=== PATIENT | female | born 1990 | race African-American/Black ===

== ENCOUNTER 2016-05-20 12:46 | Emergency (ER) | payer MEDICAID, OTHER ==
[~2016-05-20] VITALS: Ht 157.5 cm; Wt 54.4 kg
[~2016-05-20 12:46] MED LIST: AMOXICILLIN500 MG ORAL; AZITHROMYCIN250 MG ORAL; GUAIFENESIN DM118 M1 ORAL; GUAIFENESIN-CO118 M1 ORAL; KEFLEX500 MG ORAL; MEDROL DOSEPAK4 MG ORAL; PRENATAL MULTI1 EAC1 PO; PROAIR HFA8.5 GM INH; [UNRECOGNIZED DRUG - REMARK]
[2016-05-20 13:45] VITALS: BP 105/65
[2016-05-20 14:11] LABS: APPEARANCE,URINE CLOUDY; KETONES,URINE NEGATIVE (NEGATIVE); LEUKOCYTE ESTERASE ,URINE 1+ (NEGATIVE); NITRITE,URINE NEGATIVE (NEGATIVE); PH,URINE 8 (4.5-8.0); PROTEIN,URINE NEGATIVE (NEGATIVE); UROBILINOGEN,URINE NORMAL MG/DL (0.0-1.0)
[2016-05-20 14:24] LABS: BASOPHILS % (AUTO) 2.6 % (0.0-2.0); EOSINOPHILS % (AUTO) 2.1 % (0.0-3.0); LYMPHOCYTES % (AUTO) 46.6 % (20.0-45.0); MEAN CORPUSCULAR HEMOGLOBIN 27.9 PG (27.0-31.0); MEAN CORPUSCULAR HGB CONC 32.3 G/DL (32.0-36.0); MEAN CORPUSCULAR VOLUME 86 FL (80-99); MONOCYTES % (AUTO) 5.1 % (1.0-10.0); NEUTROPHILS % (AUTO) 43.5 % (45.0-75.0); PLATELET COUNT 270 K/UL (150-450); RED BLOOD COUNT 5.28 M/UL (4.20-5.40); RED CELL DISTRIBUTION WIDTH 13.6 % (11.6-14.8); WHITE BLOOD COUNT 4.1 K/UL (4.8-10.8)
[2016-05-20 14:31] LABS: ALANINE AMINOTRANSFERASE 5 U/L (3-33); ALBUMIN/GLOBULIN RATIO 1.6 (1.0-2.7); ANION GAP 12 (5-15); ASPARTATE AMINO TRANSFERASE 14 U/L (5-40); CALCIUM 9.4 mg/dL (8.6-10.2); CARBON DIOXIDE 28 mEQ/L (20-30); CHLORIDE 102 mEQ/L (98-107); CREATININE 1.1 mg/dL (0.5-0.9); GLOMERULAR FILTRATION RATE > 60 mL/min (>60); HEMOLYSIS 7; POTASSIUM 3.9 mEQ/L (3.4-4.9); SODIUM 142 mEQ/L (135-145); TOTAL PROTEIN 6.8 g/dL (6.6-8.7)
--- NOTE | 2016-05-20 14:32 | Emergency Room Report ---
History of Present Illness General Chief Complaint: Abdominal Pain Source: Patient Present Illness HPI This patient complains of left lower quadrant abdominal pain. She states the symptoms started 4 days ago. She states that she's also had a small amount of diarrhea. She denies nausea or vomiting. She denies fever chills. She denies dysuria. She has no other complaints. Allergies: Coded Allergies: ACETAMINOPHEN (Unverified Allergy, Unknown, 06/22/14) HYDROCODONE (Unverified Allergy, Unknown, 06/22/14) Patient History Past Medical History: see triage record, asthma Social History: Denies: alcohol use, drug use, smoking Now: No : 1 Para: 1 Reviewed Nursing Documentation: PMH: Agreed, PSxH: Agreed Nursing Documentation-PMH Past Medical History: No History, Except For Hx Cardiac Problems: No - Raynauds dis Hx Asthma: Yes History Of Psychiatric Problem: Yes - depression Review of Systems All Other Systems: negative except mentioned in HPI Physical Exam Vital Signs Date Time Temp Pulse Resp B/P Pulse Ox O2 Delivery O2 Flow Rate FiO2 05/20/16 13:03 99.1 80 18 106/74 100 Room Air Sp02 EP Interpretation: reviewed, normal General Appearance: no apparent distress, alert, GCS 15, non-toxic Head: normocephalic, atraumatic Eyes: bilateral eye PERRL, bilateral eye normal inspection ENT: hearing grossly normal, normal pharynx, no angioedema, normal voice Neck: full range of motion, supple/symm/no masses Respiratory: chest non-tender, lungs clear, normal breath sounds, speaking full sentences Cardiovascular #1: regular rate, rhythm, no edema Gastrointestinal: normal bowel sounds, soft, non-distended, no guarding, no rebound, tenderness - TTP in LLQ Rectal: deferred Musculoskeletal: back normal, gait/station normal, normal range of motion, non- tender Neurologic: alert, oriented x3, responsive, motor strength/tone normal, sensory intact, speech normal Psychiatric: judgement/insight normal, memory normal, mood/affect normal, no suicidal/homicidal ideation Skin: normal color, no rash, warm/dry, well hydrated Medical Decision Making Diagnostic Impression: Primary Impression: Abdominal pain Additional Impression: Diarrhea ER Course This patient presents with abdominal pain and left lower quadrant pain. My differential diagnosis includes diverticulitis, urolithiasis, intra-abdominal abscess, 3 times a day to him a few. Laboratory workup is benign, specifically no elevation of white blood cell count. Urinalysis shows some blood. Urolithiasis is still my differential. Other considerations include colitis, gastroenteritis. The patient is pending a CT abdomen and pelvis at this time. Please see Dr. Martin's note for final diagnosis and disposition. Labs Test 05/20/16 13:32 05/20/16 14:00 Urine Color Pale yellow Urine Appearance Cloudy Urine pH 8 (4.5-8.0) Urine Specific [place] 1.010 (1.005-1.035) Urine Protein Negative (NEGATIVE) Urine Glucose (UA) Negative (NEGATIVE) Urine Ketones Negative (NEGATIVE) Urine Occult Blood 5+ (NEGATIVE) Urine Nitrite Negative (NEGATIVE) Urine Bilirubin Negative (NEGATIVE) Urine Urobilinogen Normal MG/DL (0.0-1.0) Urine Leukocyte Esterase 1+ (NEGATIVE) Urine RBC 5-10 /HPF (0 - 2) Urine WBC 2-4 /HPF (0 - 2) Urine Squamous Epithelial Cells Moderate /LPF (NONE/OCC) Urine Bacteria Few /HPF (NONE) Urine HCG, Qualitative Negative White Blood Count 4.1 K/UL (4.8-10.8) Red Blood Count 5.28 M/UL (4.20-5.40) Hemoglobin 14.7 G/DL (12.0-16.0) Hematocrit 45.5 % (37.0-47.0) Mean Corpuscular Volume 86 FL (80-99) Mean Corpuscular Hemoglobin 27.9 PG (27.0-31.0) Mean Corpuscular Hemoglobin Concent 32.3 G/DL (32.0-36.0) Red Cell Distribution Width 13.6 % (11.6-14.8) Platelet Count 270 K/UL (150-450) Mean Platelet Volume 7.0 FL (6.5-10.1) Neutrophils (%) (Auto) 43.5 % (45.0-75.0) Lymphocytes (%) (Auto) 46.6 % (20.0-45.0) Monocytes (%) (Auto) 5.1 % (1.0-10.0) Eosinophils (%) (Auto) 2.1 % (0.0-3.0) Basophils (%) (Auto) 2.6 % (0.0-2.0) Sodium Level 142 mEQ/L (135-145) Potassium Level 3.9 mEQ/L (3.4-4.9) Chloride Level 102 mEQ/L (98-107) Carbon Dioxide Level 28 mEQ/L (20-30) Anion Gap 12 (5-15) Blood Urea Nitrogen 5 mg/dL (7-23) Creatinine 1.1 mg/dL (0.5-0.9) Estimat Glomerular Filtration Rate > 60 mL/min (>60) Glucose Level 93 mg/dL (74-106) Calcium Level 9.4 mg/dL (8.6-10.2) Total Bilirubin 0.2 mg/dL (0.0-1.2) Aspartate Amino Transf (AST/SGOT) 14 U/L (5-40) Alanine Aminotransferase (ALT/SGPT) 5 U/L (3-33) Alkaline Phosphatase 55 U/L (35-104) Total Protein 6.8 g/dL (6.6-8.7) Albumin 4.2 g/dL (3.5-5.2) Globulin 2.6 g/dL Albumin/Globulin Ratio 1.6 (1.0-2.7) CT/MRI/US Diagnostic Results CT/MRI/US Diagnostic Results : Imaging Test Ordered: CT abd/pelvis Last Vital Signs Date Time Temp Pulse Resp B/P Pulse Ox O2 Delivery O2 Flow Rate FiO2 05/20/16 13:03 99.1 80 18 106/74 100 Room Air Condition: Stable Referrals: [facility],REFERRING (PCP) NGUYỄN OJEDA D.O. May 20, 2016 14:32
[2016-05-20 14:37] LABS: BACTERIA,URINE FEW /HPF; SQUAMOUS EPITHELIAL CELL,UR MODERATE /LPF (NONE/OCC)
[2016-05-20 16:00] VITALS: BP 110/70
[2016-05-20 16:32] VITALS: BP 110/70
--- NOTE | 2016-05-20 16:44 | Diagnostic Imaging Report ---
Clinical Indication: PAIN Technique: No oral contrast utilized, per emergency room physician request IV administration nonionic contrast. Venous phase spiral acquisition obtained through the abdomen and pelvis. Multiplanar reconstructions were generated. Total dose length product 653 mGycm. CTDIvol(s) 13 mGy Comparison: None Findings: The appendix is normal. No evidence of diverticulosis or diverticulitis. There is trace free pelvic fluid. No small bowel distention. No free intraperitoneal air. There is a broad-based umbilical hernia into which protrudes a few knuckles of small bowel but which does not appear to be obstructing the distal esophagus, stomach, duodenum are unremarkable. The liver, gallbladder, bile ducts, pancreas, spleen, adrenals, kidneys are unremarkable. No mesenteric or retroperitoneal mass or adenopathy. There is an intrauterine device within the uterus in good position. No adnexal mass. The included lung bases are clear. The bones are unremarkable. Impression: Essentially unremarkable exam. No acute findings demonstrated Incidental finding of small broad-based umbilical hernia Intrauterine device The CT scanner at [facility] is accredited by the [employer] and the scans are performed using protocols designed to limit radiation exposure to as low as reasonably achievable to attain images of sufficient resolution adequate for diagnostic evaluation.
[2016-05-20] MEDS ORDERED: ZOFRAN ODT4 MG ORAL (17:01)
[2016-05-20] MEDS ORDERED: PEPCID20 MG ORAL (17:01)
== END 2016-05-20 16:32 | disposition home or self-care (01) ==
LOC: EMR 14:09
DX: R10.32 Left lower quadrant pain (principal); R19.7 Diarrhea, unspecified; F32.9 Major depressive disorder, single episode, unspecified; J45.909 Unspecified asthma, uncomplicated; I73.00 Raynaud's syndrome without gangrene; Z88.6 Allergy status to analgesic agent
CPT/HCPCS: 36415; 74177; 80053; 81003; 81025; 85025; 96374; 99284; Q9967

== ENCOUNTER 2017-01-25 20:56 | Emergency (ER) | payer OTHER ==
[~2017-01-25] VITALS: Ht 157.5 cm; Wt 54.4 kg
[~2017-01-25 20:56] MED LIST changes: +PEPCID20 MG ORAL; +ZOFRAN ODT4 MG ORAL
[2017-01-25 21:10] VITALS: BP 112/78
--- NOTE | 2017-01-25 21:22 | Emergency Room Report ---
History of Present Illness General Chief Complaint: Abdominal Pain Source: Patient Present Illness HPI Patient presents with complaints of lower suprapubic discomfort Burning with urination Patient also had pressure in both frontal sinuses and the maxillary sinuses some pressure behind the right eye Symptoms ongoing for the past 3 days denies any vomiting or visual changes denies any chest pain or shortness of breath Denies any flank pain denies any trauma Allergies: Coded Allergies: ACETAMINOPHEN (Unverified Allergy, Unknown, 06/22/14) HYDROCODONE (Unverified Allergy, Unknown, 06/22/14) Patient History Past Medical History: see triage record Pertinent Family History: none Last Menstrual Period: 01/07/17 Reviewed Nursing Documentation: PMH: Agreed, PSxH: Agreed Nursing Documentation-PMH Hx Cardiac Problems: No - Raynauds dis Hx Asthma: Yes Review of Systems All Other Systems: negative except mentioned in HPI Physical Exam Vital Signs Date Time Temp Pulse Resp B/P (MAP) Pulse Ox O2 Delivery O2 Flow Rate FiO2 01/25/17 21:00 98.2 76 20 112/78 98 Room Air Sp02 EP Interpretation: reviewed, normal General Appearance: well appearing, no apparent distress Head: normocephalic, atraumatic Eyes: bilateral eye PERRL, bilateral eye EOMI ENT: normal pharynx, TMs + canals normal, uvula midline, other - Increased pressure on palpation of bilateral maxillary sinus Neck: full range of motion, supple, no meningismus, no bony tend Respiratory: lungs clear, normal breath sounds, no rhonchi, no respiratory distress, no retraction, no accessory muscle use Cardiovascular #1: normal peripheral pulses, regular rate, rhythm, no edema, no gallop, no JVD, no murmur Gastrointestinal: normal bowel sounds, non tender, soft, no mass, no organomegaly, non-distended, no guarding, no hernia, no pulsatile mass, no rebound Genitourinary: no CVA tenderness Musculoskeletal: normal inspection Neurologic: oriented x3, responsive, machine tool rebuilder III-XII nml as tested, motor strength/ tone normal, sensory intact Psychiatric: mood/affect normal Skin: normal color, no rash, warm/dry, palpation normal Lymphatic: normal inspection, no adenopathy Medical Decision Making Diagnostic Impression: Primary Impression: Abdominal pain Additional Impression: Headache ER Course With the patient's history and examination, multiple differentials considered, including but not limited to , ectopic , ovarian torsion, gastritis, cholecystitis, pancreatitis, appendicitis Patient's headache appears to be likely early sinus pathology There is clinical evidence of cluster type headache as well Otherwise benign neurological exam Patient's abdomen is also soft and benign Urine sample is negative there was a small amount of bacteria does not appear to be clearly in line with UTI however given the clinical complaint as well patient was treated on macro for several days and requires close followup Patient was given instructions regarding early appendicitis signs, Labs Test 01/25/17 21:05 Urine Color Yellow Urine Appearance Cloudy Urine pH 8 (4.5-8.0) Urine Specific [place] 1.015 (1.005-1.035) Urine Protein 2+ (NEGATIVE) Urine Glucose (UA) Negative (NEGATIVE) Urine Ketones Negative (NEGATIVE) Urine Occult Blood Negative (NEGATIVE) Urine Nitrite Negative (NEGATIVE) Urine Bilirubin Negative (NEGATIVE) Urine Urobilinogen 4 MG/DL (0.0-1.0) Urine Leukocyte Esterase 1+ (NEGATIVE) Urine RBC 0-2 /HPF (0 - 2) Urine WBC 2-4 /HPF (0 - 2) Urine Squamous Epithelial Cells Few /LPF (NONE/OCC) Urine Amorphous Sediment Many /LPF (NONE) Urine Bacteria Few /HPF (NONE) Urine HCG, Qualitative Negative Last Vital Signs Date Time Temp Pulse Resp B/P (MAP) Pulse Ox O2 Delivery O2 Flow Rate FiO2 01/25/17 21:00 98.2 76 20 112/78 98 Room Air Status: improved Disposition: HOME, SELF-CARE Condition: Improved Additional Instructions: Patient is provided with the discharge instructions notified to follow up with primary doctor in the next 2-3 days otherwise return to the er with any worsening symptoms. Please note that this report is being documented using [employer] technology. This can lead to erroneous entry secondary to incorrect interpretation by the dictating instrument. JASON JASON D.O. Jan 25, 2017 21:22
[2017-01-25 21:29] LABS: APPEARANCE,URINE CLOUDY; KETONES,URINE NEGATIVE (NEGATIVE); LEUKOCYTE ESTERASE ,URINE 1+ (NEGATIVE); NITRITE,URINE NEGATIVE (NEGATIVE); PH,URINE 8 (4.5-8.0); PROTEIN,URINE 2+ (NEGATIVE); UROBILINOGEN,URINE 4 MG/DL (0.0-1.0)
[2017-01-25 21:39] LABS: BACTERIA,URINE FEW /HPF; RBC,URINE 0-2 /HPF (0 - 2); SQUAMOUS EPITHELIAL CELL,UR FEW /LPF (NONE/OCC)
[2017-01-25 21:40] LABS: AMORPHOUS SEDIMENT,UR MANY /LPF
[2017-01-25] MEDS ORDERED: Tylenol #3 tab (300mg/30mg) ORAL ONE (22:15)
[2017-01-25] MEDS ORDERED: ACETAMINOPHEN-1 EAC1 ORAL (22:18)
[2017-01-25] MEDS ORDERED: ZYRTEC10 M3 ORAL (22:18)
[2017-01-25] MEDS ORDERED: CIPROFLOXACIN500 M2 ORAL (22:18)
[2017-01-25 22:23] VITALS: BP 116/84
== END 2017-01-25 22:23 | disposition home or self-care (01) ==
LOC: EMR 21:19
DX: R10.30 Lower abdominal pain, unspecified (principal); R51 Headache; J45.909 Unspecified asthma, uncomplicated; Z88.6 Allergy status to analgesic agent
CPT/HCPCS: 81003; 81025; 99282

== ENCOUNTER 2017-01-30 10:12 | Emergency (ER) | payer OTHER ==
[~2017-01-30] VITALS: Ht 157.5 cm; Wt 54.4 kg
[~2017-01-30 10:12] MED LIST changes: +ACETAMINOPHEN-1 EAC1 ORAL; +CIPROFLOXACIN500 M2 ORAL; +ZYRTEC10 M3 ORAL
[2017-01-30 10:31] VITALS: BP 104/65
--- NOTE | 2017-01-30 10:49 | Emergency Room Report ---
History of Present Illness General Chief Complaint: Abdominal Pain Source: Patient Present Illness HPI Patient presents with complaints of discomfort across lower suprapubic midline abdominal region Patient reports that is the same discomfort as previous Patient has intrauterine device in place over the past 2 years She has asked her physicians to possibly remove it but has not removed as of yet Patient feels that the discomfort is worse with intercourse Denies any vaginal discharge or spotting Denies any upper abdominal pain denies any fevers or chills Patient reports that some of the medications she was taking her causing a headache and since stopping those she has felt better However the patient did have a headache previously prior to be on medications Allergies: Coded Allergies: ACETAMINOPHEN (Unverified Allergy, Unknown, 06/22/14) HYDROCODONE (Unverified Allergy, Unknown, 06/22/14) Patient History Past Medical History: see triage record Pertinent Family History: none Reviewed Nursing Documentation: PMH: Agreed, PSxH: Agreed Nursing Documentation-PMH Hx Cardiac Problems: No - Raynauds dis Hx Asthma: Yes Review of Systems All Other Systems: negative except mentioned in HPI Physical Exam Vital Signs Date Time Temp Pulse Resp B/P (MAP) Pulse Ox O2 Delivery O2 Flow Rate FiO2 01/30/17 10:23 98.2 84 20 108/71 99 Room Air Sp02 EP Interpretation: reviewed, normal General Appearance: well appearing, no apparent distress Head: normocephalic, atraumatic Eyes: bilateral eye PERRL, bilateral eye EOMI ENT: hearing grossly normal, normal pharynx, TMs + canals normal, uvula midline Neck: full range of motion, supple, no meningismus, no bony tend Respiratory: lungs clear, normal breath sounds, no rhonchi, no respiratory distress, no retraction, no accessory muscle use Cardiovascular #1: normal peripheral pulses, regular rate, rhythm, no edema, no gallop, no JVD, no murmur Gastrointestinal: normal bowel sounds, non tender, soft, no mass, no organomegaly, non-distended, no guarding, no hernia, no pulsatile mass, no rebound Genitourinary: no CVA tenderness Musculoskeletal: normal inspection Neurologic: oriented x3, responsive, freelance programmer/app developer III-XII nml as tested, motor strength/ tone normal, sensory intact Psychiatric: mood/affect normal Skin: normal color, no rash, warm/dry, palpation normal Lymphatic: normal inspection, no adenopathy Medical Decision Making Diagnostic Impression: Primary Impression: Abdominal pain ER Course With the patient's history and examination, multiple differentials considered, including but not limited to , ectopic , ovarian torsion, gastritis, cholecystitis, pancreatitis, appendicitis Patient continues not to show any focal discomfort in the right lower abdominal region Ultrasound was obtained for further evaluation Please note that there was some delay in obtaining the examination as the senior environmental technician was performing procedure in the radiology department At this time it was noted the patient had follicular cyst visualized bilaterally Anechoic structure the cervix No other acute pathology Patient resting comfortably no acute distress And stable for close followup I did discuss with her the possibility and her talking with her social media developer for removal of the intrauterine device as it might be causing some of the discomfort CT/MRI/US Diagnostic Results CT/MRI/US Diagnostic Results : Impression Pelvic ultrasound: Bilateral follicular ovarian cyst, and echoic structure in cervix Last Vital Signs Date Time Temp Pulse Resp B/P (MAP) Pulse Ox O2 Delivery O2 Flow Rate FiO2 01/30/17 10:31 99.0 75 20 104/65 100 Room Air Status: improved Disposition: HOME, SELF-CARE Condition: Improved Scripts Tramadol Hcl* (ULTRAM*) 50 Mg Tablet 50 MG ORAL Q12HR Y for For Pain, #10 TAB 0 Refills Prov: JASON JASON D.O. 01/30/17 Referrals: [facility],REFERRING (PCP) Additional Instructions: Patient is provided with the discharge instructions notified to follow up with primary doctor in the next 2-3 days otherwise return to the er with any worsening symptoms. Please note that this report is being documented using [employer] technology. This can lead to erroneous entry secondary to incorrect interpretation by the dictating instrument. JASON JASON D.O. Jan 30, 2017 10:49
[2017-01-30] MEDS ORDERED: Dicyclomine HCl 10mg/5ml oral soln ORAL ONE (12:45)
[2017-01-30] MEDS ORDERED: Mylanta II UD 30ml ORAL ONE (12:45)
[2017-01-30] MEDS ORDERED: Lidocaine 2% Visc 15ml soln ORAL ONE (12:45)
[2017-01-30] MEDS ORDERED: Ketorolac 60mg Inj IM ONE (13:30)
[2017-01-30] MEDS ORDERED: TRAMADOL HCL50 MG ORAL (14:03)
[2017-01-30 14:35] VITALS: BP 105/77
--- NOTE | 2017-01-31 10:07 | Diagnostic Imaging Report ---
Indication: Pelvic pain Technique: Transabdominal and endovaginal pelvic ultrasound Comparison: None Findings: Uterus measures 7.4 x 3.1 cm. The endometrial echo complex measures 4 mm. An intrauterine device is present. Right ovary measures 3.2 x 2.2 cm with follicular changes. Left ovary measures 2.7 x 1.8 cm with follicular changes. Color and Doppler flow are demonstrated to the bilateral ovaries. There is a 5 mm echogenic structure within what appears to be the cervical canal with adjacent cervical fluid. Impression: Intrauterine device. Trace endocervical fluid. Approximately 5 mm echogenic structure within what appears to be the cervical canal may be related to the intrauterine device but this is not certain. Gynecologic evaluation recommended. Otherwise normal sonographic appearance of the uterus and bilateral ovaries.
== END 2017-01-30 14:36 | disposition home or self-care (01) ==
LOC: EMR 10:40
DX: R10.30 Lower abdominal pain, unspecified (principal); J45.909 Unspecified asthma, uncomplicated; Z97.5 Presence of (intrauterine) contraceptive device; Z88.6 Allergy status to analgesic agent
CPT/HCPCS: 76856; 96372; 99284

== ENCOUNTER 2017-03-20 22:19 | Emergency (ER) | payer OTHER ==
[~2017-03-20] VITALS: Ht 157.5 cm; Wt 54.4 kg
[~2017-03-20 22:19] MED LIST changes: +TRAMADOL HCL50 MG ORAL
[2017-03-20 22:37] VITALS: BP 107/79
--- NOTE | 2017-03-20 22:52 | Emergency Room Report ---
History of Present Illness General Chief Complaint: Upper Respiratory Illness Source: Patient Present Illness HPI Is a 26-year-old female with a history of asthma in the past. She's not any inhaler. She presented chief complaint of cough. No fever or chills. Worse with exertion. Coughing productive of phlegm. Has been onset since early March. Her DrAlecia gave her Sudafed is not helping much. Denies any other complaint. Allergies: Coded Allergies: ACETAMINOPHEN (Unverified Allergy, Unknown, 06/22/14) HYDROCODONE (Unverified Allergy, Unknown, 06/22/14) Patient History Past Medical History: see triage record, old chart reviewed, asthma Past Surgical History: none Pertinent Family History: none Social History: Denies: smoking Last Menstrual Period: 3 months (IUD) Now: No Immunizations: other Reviewed Nursing Documentation: PMH: Agreed, PSxH: Agreed Nursing Documentation-PMH Past Medical History: No History, Except For Hx Cardiac Problems: No - Raynauds dis Hx Asthma: Yes History Of Psychiatric Problem: Yes - Depression Review of Systems Eye: Denies: eye pain, blurred vision ENT: Reports: nose congestion, Denies: ear pain, throat swelling Respiratory: Reports: cough, Denies: shortness of breath Cardiovascular: Denies: chest pain, palpitations Gastrointestinal: Denies: abdominal pain, diarrhea, nausea, vomiting Musculoskeletal: Denies: back pain, joint pain Skin: Denies: rash Neurological: Denies: headache, numbness Endocrine: Denies: increased thirst, increased urine Hematologic/Lymphatic: Denies: easy bruising All Other Systems: negative except mentioned in HPI Physical Exam Vital Signs Date Time Temp Pulse Resp B/P (MAP) Pulse Ox O2 Delivery O2 Flow Rate FiO2 03/20/17 22:25 99.1 98 16 107/79 97 Room Air vitals normal Sp02 EP Interpretation: reviewed, normal General Appearance: well appearing, no apparent distress, alert Head: normocephalic, atraumatic Eyes: bilateral eye PERRL, bilateral eye EOMI ENT: hearing grossly normal, normal pharynx Neck: full range of motion, supple, no meningismus Respiratory: chest non-tender, lungs clear, normal breath sounds Cardiovascular #1: regular rate, rhythm, no murmur Gastrointestinal: normal bowel sounds, non tender, no mass, no organomegaly, no bruit, non-distended Musculoskeletal: back normal, gait/station normal, normal range of motion Psychiatric: mood/affect normal Skin: warm/dry Medical Decision Making Diagnostic Impression: Primary Impression: Viral bronchitis ER Course Patient with upper respiratory infection and viral bronchitis. No evidence of pneumonia. She does have coughing with inspiration. We'll treat with inhalers and prednisone. No evidence of ACS, PE, section to name a few. Last Vital Signs Date Time Temp Pulse Resp B/P (MAP) Pulse Ox O2 Delivery O2 Flow Rate FiO2 03/20/17 22:37 98 16 Room Air 03/20/17 22:25 99.1 107/79 97 Status: unchanged Disposition: HOME, SELF-CARE Condition: Stable Scripts Prednisone* (PREDNISONE*) 20 Mg Tablet 60 MG ORAL DAILY, #15 TAB Prov: ELOISE LIRA M.D. 03/20/17 Albuterol Sulfate* (ALBUTEROL SULFATE MDI*) 8.5 Gm Hfa.aer.ad 2 PUFF INH Q4H Y for cough/wheezing, #1 EA 0 Refills Prov: ELOISE LIRA M.D. 03/20/17 Patient Instructions: Upper Respiratory Infection, Adult Additional Instructions: Followup with your DrAlecia in 7 days. Return if symptom worsen. ELOISE LIRA M.D. Mar 20, 2017 22:52
[2017-03-20] MEDS ORDERED: ALBUTEROL SULF8.5 GM INH (22:57)
[2017-03-20] MEDS ORDERED: PREDNISONE20 MG ORAL (22:57)
[2017-03-20 23:04] VITALS: BP 107/79
== END 2017-03-20 23:04 | disposition home or self-care (01) ==
LOC: EMR 23:04
DX: J20.8 Acute bronchitis due to other specified organisms (principal); J45.909 Unspecified asthma, uncomplicated
CPT/HCPCS: 99284

== ENCOUNTER 2017-06-26 09:43 | Emergency (ER) | payer OTHER ==
[~2017-06-26] VITALS: Ht 162.6 cm; Wt 59.0 kg
[2017-06-26] VITALS (9 sets, daily range): BP systolic 89–119; BP diastolic 56–73
[~2017-06-26 09:43] MED LIST changes: +ALBUTEROL SULF8.5 GM INH; +PREDNISONE20 MG ORAL
[2017-06-26] MEDS ORDERED: IMITREX50 MG ORAL (09:54)
--- NOTE | 2017-06-26 09:56 | Emergency Room Report ---
History of Present Illness General Chief Complaint: Seizure Source: Patient, Family Member Present Illness HPI Patient had presented for possible seizure activity this morning Patient had history of migraine headaches however no previous evidence of seizures Boyfriend had described seizure activity patient had felt somewhat weak but denied any focal weakness upon arrival and placement into the hospital bed patient was reported by nursing staff to have a tonic-clonic type seizure activity for approximately 30 seconds There was no reports of vomiting Patient at this time appeared somewhat postictal and mildly tachypneic Allergies: Coded Allergies: ACETAMINOPHEN (Unverified Allergy, Unknown, 06/22/14) HYDROCODONE (Unverified Allergy, Unknown, 06/22/14) Patient History Limited by: medical condition Past Medical History: see triage record Pertinent Family History: none Reviewed Nursing Documentation: PMH: Agreed; PSxH: Agreed Nursing Documentation-PMH Hx Cardiac Problems: No - Raynauds dis Hx Asthma: Yes Hx Diabetes: No - MIGARINE Review of Systems All Other Systems: limited - Other than the ones mentioned in the history of present illness all others are reviewed however they do stay limited due to the patient's mental status Physical Exam Vital Signs Date Time Temp Pulse Resp B/P (MAP) Pulse Ox O2 Delivery O2 Flow Rate FiO2 06/26/17 09:46 98.5 75 20 119/79 99 Room Air 98.4 Sp02 EP Interpretation: reviewed, normal General Appearance: mild distress - Patient appears postictal Head: normocephalic, atraumatic Eyes: bilateral eye PERRL, bilateral eye EOMI ENT: normal pharynx Neck: full range of motion, supple Respiratory: chest non-tender, lungs clear Cardiovascular #1: normal peripheral pulses, regular rate, rhythm, no edema Gastrointestinal: normal bowel sounds, non tender, soft Genitourinary: no CVA tenderness Musculoskeletal: normal inspection, back normal Neurologic: alert, oriented x3 - On initial evaluation patient was somewhat postictal however during the reevaluation process patient has become oriented and verbal appropriately with GCS 15, Psychiatric: normal inspection Skin: normal inspection, normal color, no rash Lymphatic: no adenopathy Medical Decision Making Diagnostic Impression: Primary Impression: Epileptic seizure, generalized ER Course Upon initial arrival multiple differentials are entertained Patient is complex requiring blood work and imaging study After patient has become more appropriate and has improved from the postictal state Patient reports that she was at another hospital last month With severe dizziness Also some facial twitching and had extensive admission at that time including MRI and evaluation for seizure Patient was discharged and reports that the suggested the migraine headaches or possibly the source The patient's now reports that over the past 2 days he has noticed some shaking type episode possible seizure However today it seemed to last longer than usual and therefore brought the patient to the ER for further eval Thus far the emergency room workup has not revealed significant input Blood work and imaging were negative patient was given Ativan and at this time Keppra given the seizure activity in the emergency room and requires further inpatient care Labs Test 06/26/17 10:15 White Blood Count 5.0 K/UL (4.8-10.8) Red Blood Count 5.56 M/UL (4.20-5.40) Hemoglobin 15.1 G/DL (12.0-16.0) Hematocrit 46.7 % (37.0-47.0) Mean Corpuscular Volume 84 FL (80-99) Mean Corpuscular Hemoglobin 27.2 PG (27.0-31.0) Mean Corpuscular Hemoglobin Concent 32.4 G/DL (32.0-36.0) Red Cell Distribution Width 13.4 % (11.6-14.8) Platelet Count 280 K/UL (150-450) Mean Platelet Volume 7.2 FL (6.5-10.1) Neutrophils (%) (Auto) 52.4 % (45.0-75.0) Lymphocytes (%) (Auto) 41.7 % (20.0-45.0) Monocytes (%) (Auto) 3.0 % (1.0-10.0) Eosinophils (%) (Auto) 1.4 % (0.0-3.0) Basophils (%) (Auto) 1.5 % (0.0-2.0) Urine HCG, Qualitative Negative (NEGATIVE) Sodium Level 137 MMOL/L (136-145) Potassium Level 3.8 MMOL/L (3.5-5.1) Chloride Level 105 MMOL/L (98-107) Carbon Dioxide Level 27 MMOL/L (21-32) Anion Gap 5 mmol/L (5-15) Blood Urea Nitrogen 8 mg/dL (7-18) Creatinine 0.9 MG/DL (0.55-1.30) Estimat Glomerular Filtration Rate > 60 mL/min (>60) Glucose Level 87 MG/DL (74-106) Calcium Level 9.6 MG/DL (8.5-10.1) Rhythm Strip Diag. Results EP Interpretation: yes Rate: 78 Rhythm: NSR, no PVC's, no ectopy Chest X-Ray Diagnostic Results Chest X-Ray Diagnostic Results : Chest X-Ray Ordered: Yes # of Views/Limited/Complete: 1 View Indication: Chest Pain EP Interpretation: Yes Interpretation: no consolidation, no effusion, no pneumothorax, no acute cardiopulmonary disease Impression: No acute disease Electronically Signed by: Luz Kuhn DO CT/MRI/US Diagnostic Results CT/MRI/US Diagnostic Results : Impression CT head no acute disease Last Vital Signs Date Time Temp Pulse Resp B/P (MAP) Pulse Ox O2 Delivery O2 Flow Rate FiO2 06/26/17 09:46 98.5 75 20 119/79 99 Room Air 98.4 Status: improved Disposition: XFER [facility] Condition: Improved Luz Kuhn DO Jun 26, 2017 09:56
[2017-06-26] MEDS ORDERED: LORazepam Inj 2mg/ml 1ml IV ONE (10:00)
[2017-06-26 10:36] LABS: BASOPHILS % (AUTO) 1.5 % (0.0-2.0); EOSINOPHILS % (AUTO) 1.4 % (0.0-3.0); HEMATOCRIT 46.7 % (37.0-47.0); HEMOGLOBIN 15.1 G/DL (12.0-16.0); LYMPHOCYTES % (AUTO) 41.7 % (20.0-45.0); MEAN CORPUSCULAR VOLUME 84 FL (80-99); NEUTROPHILS % (AUTO) 52.4 % (45.0-75.0); PLATELET COUNT 280 K/UL (150-450); RED BLOOD COUNT 5.56 M/UL (4.20-5.40); RED CELL DISTRIBUTION WIDTH 13.4 % (11.6-14.8)
[2017-06-26 10:48] LABS: ANION GAP 5 mmol/L (5-15); BLOOD UREA NITROGEN 8 mg/dL (7-18); CALCIUM 9.6 MG/DL (8.5-10.1); CARBON DIOXIDE 27 MMOL/L (21-32); CHLORIDE 105 MMOL/L (98-107); CREATININE 0.9 MG/DL (0.55-1.30); POTASSIUM 3.8 MMOL/L (3.5-5.1); SODIUM 137 MMOL/L (136-145)
--- NOTE | 2017-06-26 11:30 | Diagnostic Imaging Report ---
Indication: Seizure Technique: Continuous helical CT scanning of the head was performed utilizing automated exposure control without intravenous contrast material. Axial and coronal reconstructions were obtained. Comparison: None CT dose: Total DLP 1305.41 mGycm; CTDI vol 70.38 mGy Findings: There is no acute intracranial hemorrhage, mass effect or cortical edema. The ventricles, cisterns and sulci are within normal limits for age. The posterior fossa and fourth ventricle are unremarkable. Visualized mastoid air cells and paranasal sinuses are unremarkable. No focal lesions of the bony calvarium or soft tissues of the scalp are seen. IMPRESSION: No evidence of acute intracranial hemorrhage, mass effect or cortical edema. MRI may be obtained for more sensitive evaluation as clinically indicated. The CT scanner at [facility] is accredited by the [employer] and the scans are performed using protocols designed to limit radiation exposure to as low as reasonably achievable to attain images of sufficient resolution adequate for diagnostic evaluation.
[2017-06-26] MEDS ORDERED: levETIRAcetam 500mg/NS100ml 100 ML IVPB ONE (12:30)
== END 2017-06-26 21:21 | disposition short-term general hospital (02) ==
LOC: EDBEDREQ 10:00 → EMR 11:07
DX: G40.409 Other generalized epilepsy and epileptic syndromes, not intractable, without status epilepticus (principal); J45.909 Unspecified asthma, uncomplicated; I73.00 Raynaud's syndrome without gangrene; Z88.6 Allergy status to analgesic agent
CPT/HCPCS: 36415; 70450; 80048; 81025; 85025; 96361; 96374; 99285; J1953